=== PATIENT | female | born 1950 | race Caucasian/White ===

== ENCOUNTER 2017-08-18 10:13 | Day surgery (SDC) | payer MEDICARE, OTHER ==
[~2017-08-18 10:13] MED LIST: RINGER'S SOLUTION,LACTATED 1,000 ML IV PRN; ceFAZolin SODIUM 1 GM VIAL IV PRN
[2017-08-18] MEDS ORDERED: RINGER'S SOLUTION,LACTATED 1,000 ML IV ONE ×2 (10:48→13:55)
[2017-08-18] MEDS ORDERED: SCOPOLAMINE HYDROBROMIDE 1.5 MG PATC TD ONE (11:52)
[2017-08-18] MEDS ORDERED: BUPIVACAINE HCL 50 ML VIAL IJ ONE ×2 (13:49)
--- NOTE | 2017-08-18 14:03 | POSTOP NO ---
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
--- NOTE | 2017-08-18 14:11 | OR ---
Operative Report - Dictated Report Narrative: Date: 08/18/2017 Physician: Derian Garibay M.D. 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 Valera Is a 67 year-old female who has been followed in my clinic with complaints of shoulder pain consistent rotator cuff pathology as well as labral and acromial clavicular pain. Physical exam and diagnostic imaging were consistent with his complaints and concern for full-thickness rotator cuff tear , labral tear and acromial clavicular arthrosis resulting in impingement. Conservative measures have failed including, but not limited to, passage of time , activity modification, medications, physical therapy/home exercise program, or injections. The risks, benefits, and alternatives were discussed in clinic. The risks being , bleeding, infection, blood clots, nerve, tendon, ligament, blood vessel injury, persistent pain, arthrosis, stiffness, need for prolonged therapy, need for additional procedures, and persistent symptoms. Consent was obtained in the clinic. Procedure: After marking the correct extremity in the preoperative holding area, a timeout was performed in the operating room. IV antibiotics consisting of Ancef were administered prior to the procedure. A general followed by regional anesthetic was induced by the nurse senior clinical study manager per my request. This was in the supine position, then the patient was transitioned to a beachchair position with all bony prominences well-padded, head in neutral, the nonoperative arm well supported, and the legs padded with SCDs in place. The operative shoulder was then prepped and draped in a standard sterile fashion. Preoperatively the shoulder had full passive range of motion, and no gross instability. After marking out the bony landmarks, saline was infused into the joint through a posterior lateral portal site. A georges incision was made, and the blunt trocar and cannula was introduced into the shoulder joint. An accessory portal was placed in the rotator cuff interval using a spinal needle for guidance. Upon initial evaluation, the biceps tendon showed no tendinopathy. The middle glenohumeral ligament was intact. Subscapularis tendon was partially torn at its insertion but otherwise intact. The glenoid showed no significant arthrosis or Bankart. The humeral head articular surface showed minimal arthrosis but no Hill-Sachs. The anterior labrum was frayed and partially torn in a degenerative manner. The superior labrum was torn but not unstable. The pouch was unremarkable. The posterior labrum was unremarkable. The supraspinatus tendon was torn and a full thickness manner just behind the biceps tendon but did not involve the infraspinatus. The infraspinatus tendon was intact. Utilizing the portal, a tag stitch was placed and the biceps. The biceps was tenotomized as it inserted on the labrum. The remaining stump was debrided using shaver. The anterior and superior labrum were debrided down to stable margins using a shaver. The greater tuberosity and rotator cuff tendon were also debrided using the shaver. An accessory lateral portal was utilized in order to debride the tendon and tuberosity. Attention was then turned to the subacromial space. Subacromial bursectomy was performed utilizing the prior portals. The coracoacromial ligament intact. The bursal side of the rotator cuff demonstrated a full-thickness tear as identified intra-articularly. The acromial arch was unremarkable. Based on the arthroscopic findings, as well as exam and radiographic findings, it was elected to proceed with a mini open rotator cuff repair. A longitudinal incision centered over the previously identified rotator cuff tear was made just off the edge of the acromion. This was approximately 6 centimeters in length. The deltoid fascia was split sharply in line with its fibers, and blunt dissection was carried through the deltoid muscle. Any remaining subacromial bursal tissue was debrided in order to expose the underlying rotator cuff tear. Initially we performed a biceps tenodesis. The biceps was mobilized into the bicipital groove. The groove was roughened and a helical anchor was placed into the groove. The biceps tendon was then secured using the sutures and tied in a sliding manner in order to stabilize this in the groove in the extra- articular portion. The extra biceps tendon was also excised. The rotator cuff tear appeared to be transverse orientation. The tuberosity was debrided of its soft tissues producing a bleeding bed for the tendon to be secured to. 1 4.5 mm PEEK helicoil anchor was placed just off the articular surface of the humeral head. A series of horizontal mattress sutures were placed at the prepared edge of the rotator cuff. This allowed for a tension- free return of the tendon to the greater tuberosity. The sutures were then passed longitudinally into 1 4.5 mm PEEK footprint anchor. This was performed and a suture bridge technique. This gave good overall compression to the rotator cuff at the insertion site. The shoulder was placed through a range of motion and had no lift off of the repair site as well as no crepitance or signs of impingement. Full passive range of motion was able to be obtained. Attention was then turned to the distal clavicle. A transverse incision was made over the acromioclavicular joint. This was sharply dissected down to the chromic clavicular capsule. Cautery was utilized for hemostasis. A longitudinal capsulotomy was made and elevated off the anterior posterior aspects of the distal clavicle. There is notable hypertrophic bone and loss of joint space between the acromion and clavicle. Protecting the surrounding soft tissues, an oscillating saw was utilized in order to resect approximately 7-10 mm of bone from the distal clavicle. The remaining clavicle was stable after removing this. The shoulders place a range of motion and showed no remaining impingement between the acromion and the clavicle. Wounds were then thoroughly irrigated. The capsule was closed with interrupted 0 Vicryl to subcutaneous tissue with 3-0 Monocryl. Skin was closed with 4-0 nylon. Once it was felt that the rotator cuff was adequately repaired, the wounds were thoroughly irrigated. 0 Vicryl was utilized in order to repair the deltoid fascia. 3-0 Monocryl was placed in the subcutaneous tissue. The rotator cuff incision as well as the portal sites were closed with interrupted nylon. Dressings consisting of Xeroform, 4 x 4, ABD, and tape were applied. All sponge, needle, blade, and instrument counts were correct prior to closing the wounds. The patient was awoken and transferred to the postanesthesia care unit in stable condition.
--- NOTE | 2017-08-18 15:04 | OR ---
Anesthesia Procedure Note - Anesthesia Procedure Note Narrative: Vital Signs - Last Taken Temp 36.5 C 08/18/17 14:40 Pulse 66 08/18/17 14:45 Resp 16 08/18/17 14:45 BP 132/71 08/18/17 14:45 Pulse Ox 90 08/18/17 14:45 O2 Oxygen Delivery Method Room Air 08/18/17 14:58 ANESTHESIA PROCEDURE NOTE Date of procedure: 08/18/2017. Time of procedure: 1200. Performed by: Roger Suarez CRNA Arboriculture Instructor: Monserrat Patel RN . Preprocedure diagnosis: Left rotator cuff tear. Desire for postoperative analgesia.. Post procedure diagnosis: Same. Procedure: Ultrasound-guided left interscalene nerve block. Indications: Postoperative analgesia.. Findings: Patient brought to operating room #2 and placed in a semi-Trujillo's position. Patient was sedated. The left-sided patient's neck was prepped with ChloraPrep and draped sterilely. Ultrasound was utilized to identify brachial plexus between the anterior and middle scalene muscles. A total of 3 mL of 1% Xylocaine was injected at the surface of the skin and into the tissue underneath. A 22-gauge 2 inch Stimuplex regional block needle was advanced under ultrasound guidance with tip identified in close proximity to brachial plexus nerves. A total of 30 mL of 0.5% Marcaine with epinephrine 1 200,000 was injected around the nerves in the brachial plexus. Adequate spread of local anesthesia was noted. Regional block needle was removed intact. EBL: Minimal. Fluids: N/A. Specimen: N/A. Post procedure condition: The patient tolerated the procedure well. No complications were noted. Thank you for this consultation Roger Suarez CRNA
[2017-08-18 15:47] VITALS: BP 120/66
== END 2017-08-18 10:14 | disposition home or self-care (01) ==
LOC: AMB 10:13
PROVIDERS: ATTEND Orthopaedic Surgery
PROC: 0RBK4ZZ Excision of Left Shoulder Joint, Percutaneous Endoscopic Approach (ICD-10-PCS; principal; 2017-08-18)
PROC: 0LQ20ZZ Repair Left Shoulder Tendon, Open Approach (ICD-10-PCS; 2017-08-18)
PROC: 0LS40ZZ Reposition Left Upper Arm Tendon, Open Approach (ICD-10-PCS; 2017-08-18)
PROC: 0RHK04Z Insertion of Internal Fixation Device into Left Shoulder Joint, Open Approach (ICD-10-PCS; 2017-08-18)
PROC: 0PBB0ZZ Excision of Left Clavicle, Open Approach (ICD-10-PCS; 2017-08-18)
PROC: 3E0T3BZ Introduction of Anesthetic Agent into Peripheral Nerves and Plexi, Percutaneous Approach (ICD-10-PCS; 2017-08-18)
DX: M75.102 Unspecified rotator cuff tear or rupture of left shoulder, not specified as traumatic (principal); S43.492A Other sprain of left shoulder joint, initial encounter; M19.012 Primary osteoarthritis, left shoulder; M75.42 Impingement syndrome of left shoulder; I11.0 Hypertensive heart disease with heart failure; I50.9 Heart failure, unspecified; I25.10 Atherosclerotic heart disease of native coronary artery without angina pectoris; K21.9 Gastro-esophageal reflux disease without esophagitis; J44.9 Chronic obstructive pulmonary disease, unspecified; I25.2 Old myocardial infarction; Z87.891 Personal history of nicotine dependence; Z68.41 Body mass index [BMI] 40.0-44.9, adult